=== PATIENT | male | born 1985 | race Caucasian/White ===

== ENCOUNTER 2017-05-07 17:24 | Emergency (ER) | payer OTHER ==
[2017-05-07 17:40] VITALS: BP 180/94
--- NOTE | 2017-05-07 18:23 | UC ---
Throat Pain/Nasal Dom HPI - HPI Summary HPI Summary: 32 yo Wm c/o left sinus pain associated with 2 week long cold sx of nasal congestion cough and flu-like illness. Left sinus pain is worsening now with green-yellow d/c. Denies f/c - History of Current Complaint Chief Complaint: UCRespiratory Stated Complaint: SINUS CONGESTION, AND HEADACHE Time Seen by Provider: 05/07/17 17:45 Hx Obtained From: Patient Onset/Duration: Lasting Weeks, Still Present Severity: Moderate Cough: Nonproductive - Allergies/Home Medications Allergies/Adverse Reactions: Allergies Allergy/AdvReac Type Severity Reaction Status Date / Time No Known Allergies Allergy Verified 05/07/17 17:40 PMH/Surg Hx/FS Hx/Imm Hx - Surgical History Surgical History: None - Social History Alcohol Use: None Substance Use Type: None Smoking Status (MU): Never Smoked Tobacco Review of Systems Constitutional: Fatigue Skin: Negative Eyes: Negative ENT: Nasal Discharge, Sinus Congestion, Sinus Pain/Tenderness - with yellow green d/c Respiratory: Negative Cardiovascular: Negative Gastrointestinal: Negative Genitourinary: Negative Motor: Negative Neurovascular: Negative Musculoskeletal: Negative Neurological: Negative Psychological: Negative All Other Systems Reviewed And Are Negative: Yes Physical Exam Triage Information Reviewed: Yes Vital Signs: Initial Vital Signs Temp 36.6 C 05/07/17 17:38 Pulse 87 05/07/17 17:38 Resp 18 05/07/17 17:38 BP 180/94 05/07/17 17:38 Pulse Ox 100 05/07/17 17:38 Eye Exam: Normal ENT: Positive: Nasal congestion, Nasal drainage - yellow and green, Sinus tenderness - on left Dental Exam: Normal Neck exam: Normal Neck: Positive: 1 Respiratory Exam: Normal Cardiovascular Exam: Normal Abdominal Exam: Normal Musculoskeletal Exam: Normal Neurological Exam: Normal Psychological Exam: Normal Skin Exam: Normal Throat Pain/Nasal Course/Dx - Differential Dx/Diagnosis Provider Diagnoses: Acute sinusitis Discharge - Discharge Plan Condition: Stable Disposition: HOME Prescriptions: Amoxicillin/Clavulanate TAB* [Augmentin TAB 875*] 875 mg PO BID 7 Days #14 tab Patient Education Materials: Sinusitis (ED) Referrals: No Primary Care Phys,NOPCP [Primary Care Provider] - Additional Instructions: as tolerated
== END 2017-05-07 18:20 | disposition home or self-care (01) ==
LOC: UCEAST 17:24
DX: J01.90 Acute sinusitis, unspecified (principal)
CPT/HCPCS: 99202; G0463